=== PATIENT | female | born 1990 | race Caucasian/White ===

== ENCOUNTER 2019-06-29 01:26 | Inpatient (IN) | payer SELFPAY ==
[2019-06-29] MEDS ORDERED: Sodium Chloride 0.9% 10 ML SDV IV PRN (02:27)
[2019-06-29] MEDS ORDERED: Methylergonovine 0.2 MG/1 ML Amp IM PRN (02:27)
[2019-06-29] MEDS ORDERED: Misoprostol 200 MCG Tab PO PRN (02:27)
[2019-06-29] MEDS ORDERED: Lidocaine 1% 50 ML MDV INJECT PRN (02:27)
[2019-06-29] MEDS ORDERED: Sodium Chloride 0.9% 2.5 ML Syringe FLUSH PRN (02:27)
[2019-06-29] MEDS ORDERED: Butorphanol 1 MG/ML SDV IVPUSH PRN (02:27)
[2019-06-29] MEDS ORDERED: Carboprost Tromethamine 250 MCG/1 ML Amp IM PRN (02:27)
[2019-06-29] MEDS ORDERED: Tranexamic Acid 1,000 MG in Sodium Chloride 0.9% 100 ML IV PRN (02:27)
[2019-06-29] MEDS ORDERED: Water For Irrigation,Sterile 1,000 ML Container IRR PRN (02:27)
[2019-06-29] MEDS ORDERED: Sodium Chloride 0.9% 10 ML Syringe FLUSH PRN (02:27)
[2019-06-29] MEDS ORDERED: Nalbuphine 10 MG/1 ML Vial IVPUSH PRN (02:27)
[2019-06-29] MEDS ORDERED: Oxytocin/0.9 % Sodium Chloride 30 UNIT/500 ML BAG IV SCH ×2 (02:30→07:30)
[2019-06-29] MEDS: Lactated Ringers 1,000 ML IV SCH ×3 (06:30→12:20)
[2019-06-29] MEDS ORDERED: Ropivacaine 0.2% PF 2 MG/ML 20 ML SDV ONE (06:49)
[2019-06-29] MEDS ORDERED: Bupivicaine/fentaNYL/NS 250 ML ONE (06:49)
[2019-06-29] MEDS ORDERED: Terbutaline 1 MG/ML SDV SUBCUT PRN (07:27)
--- NOTE | 2019-06-29 07:28 | PCM.PREANE ---
Preanesthetic Assessment - Procedure Proposed Procedure: labor epidural - Anesthesia/Transfusion/Family Hx Anesthesia History: No Prior Anesthesia Family History of Anesthesia Reaction: No Transfusion History: No Prior Transfusion(s) - Review of Systems General: No Symptoms Pulmonary: No Symptoms Cardiovascular: No Symptoms Gastrointestinal: No Symptoms Neurological: No Symptoms Other: Reports: None - Physical Assessment Height: 5 ft 5 in Weight: 77.564 kg ASA Class: 2 Mental Status: Alert & Oriented x3 Airway Class: Mallampati = 1 Dentition: Reports: Normal Dentition Thyro-Mental Finger Breadths: 3 Mouth Opening Finger Breadths: 3 ROM/Head Extension: Full Lungs: Clear to Auscultation, Normal Respiratory Effort - Lab Values: Laboratory Last Values WBC 10.59 K/uL (4.0-11.0) 06/29/19 03:35 RBC 4.16 M/uL (4.30-5.90) L 06/29/19 03:35 Hgb 13.8 g/dL (12.0-16.0) 06/29/19 03:35 Hct 41.7 % (36.0-46.0) 06/29/19 03:35 MCV 100.2 fL (80.0-98.0) H 06/29/19 03:35 MCH 33.2 pg (27.0-32.0) H 06/29/19 03:35 MCHC 33.1 g/dL (31.0-37.0) 06/29/19 03:35 RDW Std Deviation 50.1 fl (28.0-62.0) 06/29/19 03:35 RDW Coeff of Jose 14 % (11.0-15.0) 06/29/19 03:35 Plt Count 138 K/uL (150-400) L 06/29/19 03:35 MPV 12.90 fL (7.40-12.00) H 06/29/19 03:35 Nucleated RBC % 0.0 /100WBC 06/29/19 03:35 Nucleated RBCs # 0 K/uL 06/29/19 03:35 Membrane Rupture POSITIVE 06/29/19 01:30 Blood Type O POSITIVE 06/29/19 03:35 Antibody Screen NEGATIVE 06/29/19 03:35 - Allergies Allergies/Adverse Reactions: Allergies Allergy/AdvReac Type Severity Reaction Status Date / Time ondansetron [From Zofran] Allergy Hives Verified 06/29/19 01:49 Penicillins Allergy Other Verified 06/29/19 01:48 - Blood Blood Available: Yes Product(s) Available: PRBC - Anesthesia Plan Pre-Op Medication Ordered: None - Acknowledgements Anesthesia Type Planned: Epidural Pt an Appropriate Candidate for the Planned Anesthesia: Yes Alternatives and Risks of Anesthesia Discussed w Pt/Guardian: Yes Pt/Guardian Understands and Agrees with Anesthesia Plan: Yes PreAnesthesia Questionnaire - Past Health History Medical/Surgical History: Denies Medical/Surgical History 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: Reports: - Infectious Disease History Infectious Disease History: Reports: Herpes - SUBSTANCE USE Smoking Status *Q: Never Smoker Recreational Drug Use History: No - HOME MEDS Home Medications: Home Meds Acyclovir 200 mg PO DAILY 07/22/16 [History] Lysine 500 mg PO DAILY 07/22/16 [History] Meloxicam 7.5 mg PO BID #30 tablet 07/22/16 [Rx] Orphenadrine [Norflex] 100 mg PO BID #28 tab.er 07/22/16 [Rx] Pnv No.95/Ferrous Fum/Folic AC [ Tablet] 1 each PO DAILY 07/22/16 [ History] methylPREDNISolone [Medrol] 4 mg PO DAILY #21 tab.ds.pk 07/22/16 [Rx] - CURRENT (IN HOUSE) MEDS Current Meds: Current Medications Butorphanol Tartrate (Stadol) 1 mg IVPUSH Q1H PRN PRN Reason: Pain Carboprost Tromethamine (Hemabate Ds) 250 mcg IM ASDIRECTED PRN PRN Reason: Post Hemorrhage Lactated Ringer's (Ringers, Lactated) 1,000 mls @ 150 mls/hr IV ASDIRECTED ABRAN Last Admin: 06/29/19 07:19 Dose: 150 mls/hr Oxytocin/Sodium Chloride (Oxytocin 30 Unit/500 Ml-Ns) 30 unit in 500 mls @ 500 mls/hr IV TITRATE ABRAN Tranexamic Acid 1,000 mg/ (Sodium Chloride) 110 mls @ 660 mls/hr IV ONETIME PRN PRN Reason: Bleeding Lidocaine HCl (Xylocaine 1%) 50 ml INJECT ONETIME PRN PRN Reason: Laceration repair Methylergonovine Maleate (Methergine) 0.2 mg IM ASDIRECTED PRN PRN Reason: Post Hemorrhage Misoprostol (Cytotec) 200 mcg PO ONETIME PRN PRN Reason: Post Hemorrhage Nalbuphine HCl (Nubain) 10 mg IVPUSH Q1H PRN PRN Reason: Pain (severe 7-10) Sodium Chloride (Saline Flush) 10 ml FLUSH ASDIRECTED PRN PRN Reason: Keep Vein Open Sodium Chloride (Saline Flush) 2.5 ml FLUSH ASDIRECTED PRN PRN Reason: Keep Vein Open Sodium Chloride (Normal Saline) 10 ml IV ASDIRECTED PRN PRN Reason: IV Use Sterile Water (Sterile Water For Irrigation) 1,000 ml IRR ASDIRECTED PRN PRN Reason: delivery Discontinued Medications Fentanyl/Bupivacaine HCl (Fentanyl/Bupivacaine/Ns 2 Mcg-0.125% 250 Ml) Confirm Administered Dose 250 mls @ as directed .ROUTE .STK-MED ONE Stop: 06/29/19 06:50 Ropivacaine (Naropin 0.2%) Confirm Administered Dose 20 ml .ROUTE .STK-MED ONE Stop: 06/29/19 06:50
[2019-06-29] MEDS ORDERED: Witch Hazel Medicated Pads 40/Jar TOP PRN (14:21)
[2019-06-29] MEDS ORDERED: Docusate Sodium 100 MG Cap PO PRN (14:21)
[2019-06-29] MEDS ORDERED: Ibuprofen 400 MG Tab PO PRN (14:21)
[2019-06-29] MEDS ORDERED: Lanolin 100% Cream 7 GM Tube TOP PRN (14:21)
[2019-06-29] MEDS ORDERED: Benzocaine/Menthol 20%-0.5% Spray 78 GM Cannister TOP PRN (14:21)
[2019-06-29] MEDS ORDERED: Acetaminophen 500 MG Tab PO PRN ×2 (14:21)
[2019-06-29] MEDS ORDERED: Bisacodyl 10 MG Supp RECTAL PRN (14:21)
[2019-06-29] MEDS: Ibuprofen 800 MG Tab PO PRN (17:56)
--- NOTE | 2019-06-29 18:13 | OR ---
SURGEON: Michoacano Finley MD DATE OF PROCEDURE: 06/29/2019 INDICATION FOR PROCEDURE: A 28-year-old, G1, P0, at 38 weeks and 1 day presenting with rupture of membranes. The patient had a gush of fluid at home and was confirmed to be ruptured with AmnioSure. She has history of HSV-2, was on Valtrex for suppression, and did not have any active lesions. She had otherwise uncomplicated , was GBS negative. She did not make cervical change on her own and was started on Pitocin for augmentation. She had category 1 tracing. She received an epidural with good pain control. She proceeded to fully dilated and began pushing with contractions. PREOPERATIVE DIAGNOSIS: Harry intrauterine at 38 weeks and 1 day. POSTOPERATIVE DIAGNOSIS: Harry intrauterine at 38 weeks and 1 day. PROCEDURE PERFORMED: Normal spontaneous vaginal delivery, repair of the second-degree laceration. ESTIMATED BLOOD LOSS: 300 mL. ANESTHESIA: Epidural. FINDINGS: Viable male infant. score of 8 and 9. Weight is 3410g. DESCRIPTION OF PROCEDURE: The patient pushed with contractions for approximately half an hour. The head was +4 station, it was noted that the perineum had a tight band and was not stretching with the head. Right medial lateral episiotomy was made. The fetus had also had late decelerations to the 80 and 90s after contractions that recovers after about 2 minutes. The patient continued to push and the head delivered occiput anterior position, restituted ROT. No nuchal cord was noted. Anterior shoulder delivered easily with compound presentation of the right arm. The posterior shoulder and body delivered without difficulty. The baby was placed on maternal chest and evaluated by the nursery staff. The baby was stimulated and suctioned. It was pink, crying, and moving all extremities after delivery. The umbilical cord gases were obtained. The placenta was removed with gentle traction on the umbilical cord. It was examined and found to be intact with 3-vessel cord. The uterus was firm and below the umbilicus and the bleeding was light. The perineum was examined and the episiotomy was a second-degree laceration. It was repaired in usual fashion with 3-0 Vicryl. Hemostasis was confirmed. She tolerated the procedure well and was given care instructions. MCKAY / CASA /[id number] ÁNGEL
[2019-06-30] MEDS: Ibuprofen 800 MG Tab PO PRN ×2 (03:28→14:02)
--- NOTE | 2019-06-30 07:43 | PCM.POSTAN ---
POST ANESTHESIA ASSESSMENT - MENTAL STATUS Mental Status: Alert, Oriented - VITAL SIGNS Vital Signs: Last Vital Signs Temp 36.3 C 06/30/19 03:54 Pulse 76 06/30/19 03:54 Resp 16 06/30/19 03:54 BP 107/49 L 06/30/19 03:54 Pulse Ox 98 06/30/19 03:54 - RESPIRATORY Respiratory Status: Respiratory Rate WNL, Airway Patent, O2 Saturation Stable - CARDIOVASCULAR CV Status: Pulse Rate WNL, Blood Pressure Stable - GASTROINTESTINAL GI Status: No Symptoms - POST OP HYDRATION Hydration Status: Adequate & Stable
--- NOTE | 2019-06-30 07:44 | PCM48HPAN ---
Post Anesthesia Note - EVALUATION WITHIN 48HRS OF ANESTHETIC Vital Signs in Normal Range: Yes Patient Participated in Evaluation: Yes Respiratory Function Stable: Yes Airway Patent: Yes Cardiovascular Function Stable: Yes Hydration Status Stable: Yes Pain Control Satisfactory: Yes Nausea and Vomiting Control Satisfactory: Yes Mental Status Recovered: Yes Vital Signs: Last Vital Signs Temp 36.3 C 06/30/19 03:54 Pulse 76 06/30/19 03:54 Resp 16 06/30/19 03:54 BP 107/49 L 06/30/19 03:54 Pulse Ox 98 06/30/19 03:54
--- NOTE | 2019-06-30 09:15 | PCM.PNPP ---
- General Info Date of Service: 06/30/19 Functional Status: Reports: Pain Controlled - Review of Systems General: Reports: No Symptoms HEENT: Reports: No Symptoms Pulmonary: Reports: No Symptoms Cardiovascular: Reports: No Symptoms Gastrointestinal: Reports: No Symptoms Genitourinary: Reports: No Symptoms Musculoskeletal: Reports: No Symptoms Skin: Reports: No Symptoms Neurological: Reports: No Symptoms Psychiatric: Reports: No Symptoms - Patient Data Vital Signs - Most Recent: Last Vital Signs Temp 37.2 C 06/30/19 09:00 Pulse 81 06/30/19 09:00 Resp 16 06/30/19 09:00 BP 114/71 06/30/19 09:00 Pulse Ox 98 06/30/19 09:00 Weight - Most Recent: 171 lb Lab Results - Last 24 Hours: Laboratory Results - last 24 hr 06/29/19 06/30/19 Range/Units 13:47 05:39 Hgb 11.6 L (12.0-16.0) g/dL Hct 35.4 L (36.0-46.0) % Cord ABG pH 7.223 (7.18-7.38) Cord ABG Base Excess -9 (-10--2) Cord VBG pH 7.235 L (7.25-7.45) Cord VBG Base Excess -6 (-10--2) Med Orders - Current: Current Medications Acetaminophen (Tylenol Extra Strength) 500 mg PO Q4H PRN PRN Reason: Pain Acetaminophen (Tylenol Extra Strength) 1,000 mg PO Q4H PRN PRN Reason: Pain Benzocaine/Menthol (Dermoplast Pain Relief 20%-0.5% Burna) 78 gm TOP ASDIRECTED PRN PRN Reason: Perineal Comfort Measure Last Admin: 06/29/19 17:55 Dose: 1 spray Bisacodyl (Dulcolax) 10 mg RECTAL ONETIME PRN PRN Reason: Constipation Butorphanol Tartrate (Stadol) 1 mg IVPUSH Q1H PRN PRN Reason: Pain Carboprost Tromethamine (Hemabate Ds) 250 mcg IM ASDIRECTED PRN PRN Reason: Post Hemorrhage Docusate Sodium (Colace) 100 mg PO BID PRN PRN Reason: Constipation Emollient Ointment (Lansinoh Hpa) 0 gm TOP ASDIRECTED PRN PRN Reason: Sore Nipples Last Admin: 06/29/19 17:56 Dose: 1 applic Lactated Ringer's (Ringers, Lactated) 1,000 mls @ 150 mls/hr IV ASDIRECTED ABRAN Last Admin: 06/29/19 12:20 Dose: 150 mls/hr Oxytocin/Sodium Chloride (Oxytocin 30 Unit/500 Ml-Ns) 30 unit in 500 mls @ 500 mls/hr IV TITRATE ABRAN Tranexamic Acid 1,000 mg/ (Sodium Chloride) 110 mls @ 660 mls/hr IV ONETIME PRN PRN Reason: Bleeding Oxytocin/Sodium Chloride (Oxytocin 30 Unit/500 Ml-Ns) 30 unit in 500 mls @ 2 mls/hr IV TITRATE ABRAN; Protocol Last Titration: 06/29/19 13:50 Dose: 500 munits/min, 500 mls/hr Ibuprofen (Motrin) 400 mg PO Q4H PRN PRN Reason: Pain Ibuprofen (Motrin) 800 mg PO Q6H PRN PRN Reason: Pain Last Admin: 06/30/19 03:28 Dose: 800 mg Lidocaine HCl (Xylocaine 1%) 50 ml INJECT ONETIME PRN PRN Reason: Laceration repair Methylergonovine Maleate (Methergine) 0.2 mg IM ASDIRECTED PRN PRN Reason: Post Hemorrhage Misoprostol (Cytotec) 200 mcg PO ONETIME PRN PRN Reason: Post Hemorrhage Nalbuphine HCl (Nubain) 10 mg IVPUSH Q1H PRN PRN Reason: Pain (severe 7-10) Sodium Chloride (Saline Flush) 10 ml FLUSH ASDIRECTED PRN PRN Reason: Keep Vein Open Sodium Chloride (Saline Flush) 2.5 ml FLUSH ASDIRECTED PRN PRN Reason: Keep Vein Open Sodium Chloride (Normal Saline) 10 ml IV ASDIRECTED PRN PRN Reason: IV Use Sterile Water (Sterile Water For Irrigation) 1,000 ml IRR ASDIRECTED PRN PRN Reason: delivery Terbutaline Sulfate (Brethine) 0.25 mg SUBCUT ASDIRECTED PRN PRN Reason: Tacysystole Witch Brynn (Tucks) 1 pad TOP ASDIRECTED PRN PRN Reason: comfort care Last Admin: 06/29/19 17:55 Dose: 1 pkg Discontinued Medications Fentanyl/Bupivacaine HCl (Fentanyl/Bupivacaine/Ns 2 Mcg-0.125% 250 Ml) Confirm Administered Dose 250 mls @ as directed .ROUTE .STK-MED ONE Stop: 06/29/19 06:50 Last Admin: 06/29/19 21:47 Dose: Not Given Ropivacaine (Naropin 0.2%) Confirm Administered Dose 20 ml .ROUTE .STK-MED ONE Stop: 06/29/19 06:50 Last Admin: 06/29/19 21:47 Dose: Not Given - Interaction Infant Disposition, : [place] at Bedside Infant Interaction: Holding Feeding: Breastfed ; Nursed Well - Recovery Exam Fundal Tone: Firm Fundal Level: At Umbilicus Fundal Placement: Midline Lochia Amount: Small Lochia Color: Rubra/Red Episiotomy/Laceration: Approximated Bladder Status: Voiding - Exam General: Alert, Oriented, Cooperative, No Acute Distress HEENT: Pupils Equal, Pupils Reactive Neck: Supple, Trachea Midline, No JVD Lungs: Normal Respiratory Effort GI/Abdominal Exam: Soft, Non-Tender, No Distention Extremities: Normal Inspection, Normal Range of Motion, Non-Tender, No Pedal Edema Skin: Warm, Dry, Intact Neurological: Strength Equal Bilateral Psy/Mental Status: Alert, Normal Affect, Normal Mood - Problem List Review Problem List Initiated/Reviewed/Updated: Yes - My Orders Last 24 Hours: My Active Orders 06/29/19 14:21 Patient Status [ADT] Routine May Shower [RC] ASDIRECTED Up ad Yenifer [RC] ASDIRECTED Acetaminophen [Tylenol Extra Strength] 1,000 mg PO Q4H PRN Acetaminophen [Tylenol Extra Strength] 500 mg PO Q4H PRN Benzocaine/Menthol [Dermoplast Pain Relief 20%-0.5% Burna] 78 gm TOP ASDIRECTED PRN Docusate Sodium [Colace] 100 mg PO BID PRN Ibuprofen [Motrin] 400 mg PO Q4H PRN Ibuprofen [Motrin] 800 mg PO Q6H PRN Lanolin [Lansinoh HPA] See Dose Instructions TOP ASDIRECTED PRN bisacodyL [Dulcolax] 10 mg RECTAL ONETIME PRN witch Brynn [Tucks] 1 pad TOP ASDIRECTED PRN Assess Lochia [WOMSER] Per Unit Routine Assess Uterine Involution [WOMSER] Per Unit Routine Breast Pump [WOMSER] Per Unit Routine Ice Therapy [OM.PC] Per Unit Routine Perineal Care [OM.PC] Per Unit Routine Peripheral IV Discontinue [OM.PC] Routine Sitz Bath [OM.PC] Per Unit Routine 06/29/19 14:22 Cooling Warming Measures [RC] ASDIRECTED 06/29/19 Dinner Regular Diet [DIET] 06/30/19 09:08 Ready for Discharge [RC] PER UNIT ROUTINE - Assessment Assessment:: 28yo PPD1 s/p , stable and recovering well. - Plan Plan:: Tolerating PO, ambulating and voiding. Hgb stable, minimal bleeding. Stable for discharge home today, reviewed care instructions
== END 2019-06-30 18:55 | disposition home or self-care (01) | DRG 807 ==
LOC: MW.OBCHECK 01:26 → MW.OB 01:27 → MW.OBCHECK 02:00 → OBSVTOIN 13:47 → MW.OB 17:30
PROVIDERS: ADMIT Obstetrics & Gynecology; ATTEND Obstetrics & Gynecology
PROC: 10E0XZZ Delivery of Products of Conception, External Approach (ICD-10-PCS; principal; 2019-06-29)
PROC: 4A0HXCZ Measurement of Products of Conception, Cardiac Rate, External Approach (ICD-10-PCS; 2019-06-29)
PROC: 3E0R3BZ Introduction of Anesthetic Agent into Spinal Canal, Percutaneous Approach (ICD-10-PCS; 2019-06-29)
DX: O70.1 Second degree perineal laceration during delivery (principal); Z37.0 Single live birth; O76 Abnormality in fetal heart rate and rhythm complicating labor and delivery; Z3A.38 38 weeks gestation of pregnancy
CPT/HCPCS: 36415; 51702; 59025; 59409; 82803; 84112; 85014; 85018; 85027; 86592; 86593; 86850; 86900; 86901; A9270-GY; J2590; J2795; J3010; J7120